=== PATIENT | female | born 1945 | race Caucasian/White ===

== ENCOUNTER → 2017-07-09 | Outpatient (CLI) | payer MEDICARE | END | disposition home or self-care (01) | LOC: CFH 14:27 | PROVIDERS: ATTEND Radiology Radiation Oncology | DX: Z12.31 Encounter for screening mammogram for malignant neoplasm of breast (principal); N64.89 Other specified disorders of breast; Z85.3 Personal history of malignant neoplasm of breast | CPT/HCPCS: G0202 ==

== ENCOUNTER → 2017-07-16 | Outpatient (CLI) | payer MEDICARE | END | disposition home or self-care (01) | LOC: CFH 13:53 | PROVIDERS: ATTEND Radiology Radiation Oncology | DX: N64.89 Other specified disorders of breast (principal) | CPT/HCPCS: 76641; G0206 ==

== ENCOUNTER → 2018-06-23 | Outpatient (CLI) | payer MEDICARE | END | disposition home or self-care (01) | LOC: ROC 10:43 | PROVIDERS: ATTEND Radiology Radiation Oncology | DX: C50.112 Malignant neoplasm of central portion of left female breast (principal) | CPT/HCPCS: G0463 ==

== ENCOUNTER → 2020-07-12 | Outpatient (CLI) | payer MEDICARE ==
[~2020-07-12] MED LIST: ACET325T14 PO; BIOT5TAB PO; CYAN50008 PO; HYDR200T72 PO; METO-93 PO; MULT-449 PO; Melatonin PO; OMEG1CAP23 PO; SOLI10TA2 PO; Vitamin D3 PO; calcium PO; lipitor PO; naproxen PO; turmeric PO
[2020-07-12 12:31] LABS: ANION GAP 5 mmol/L (5-15); CALCIUM 9.5 mg/dL (8.5-10.1); CHLORIDE 108 mmol/L (98-107)
[2020-07-12 12:34] LABS: CREATININE 0.88 mg/dL (0.55-1.02)
[2020-07-12 12:55] LABS: BASOPHILS % (AUTO) 1 % (0-1); EOSINOPHILS % (AUTO) 2 % (1-7); LYMPHOCYTES % (AUTO) 15 % (22-44); MEAN CORPUSCULAR HEMOGLOBIN 32.8 pg (27.0-34.8); MEAN CORPUSCULAR HGB CONC 33.2 g/dL (32.4-35.8); MEAN PLATELET VOLUME 8.2 fL (7.4-10.4); MONOCYTES % (AUTO) 9 % (2-9); NEUTROPHILS % (AUTO) 73 % (42-75); PLATELET COUNT 202 x10^3/uL (130-400); RED CELL DISTRIBUTION WIDTH 12.8 % (9.6-15.2)
[2020-07-12 12:59] LABS: MD NO
== END | disposition home or self-care (01) ==
LOC: STAR 10:57
PROVIDERS: ATTEND Orthopaedic Surgery
DX: Z01.812 Encounter for preprocedural laboratory examination (principal); Z20.828 Contact with and (suspected) exposure to other viral communicable diseases; M17.12 Unilateral primary osteoarthritis, left knee
CPT/HCPCS: 36415; 80048; 85025; 87081; 87147; 87635; 93005

== ENCOUNTER 2020-07-16 06:44 | Observation (INO) | payer MEDICARE ==
[~2020-07-16] VITALS: Ht 175.3 cm; Wt 93.0 kg
[2020-07-16] MEDS ORDERED: CHLORHEXIDINE 15 ML UDC MM STA (06:54)
[2020-07-16] MEDS ORDERED: LACTATED RINGERS 1,000 ML IV SCH (07:00)
[2020-07-16] MEDS ORDERED: TRANEXAMIC ACID 100 MG/ML, 10ML ONE ×2 (07:09)
[2020-07-16] MEDS ORDERED: KETOROLAC 60 MG/2 ML ONE (07:09)
[2020-07-16] MEDS ORDERED: EPINEPHRINE 1 MG/ML, 1ML ONE (07:10)
[2020-07-16] MEDS ORDERED: VANCOMYCIN 1,000 MG ONE (07:10)
[2020-07-16] MEDS ORDERED: ROPIvacaine/PF 0.2%, 20 ML ONE (07:10)
[2020-07-16] MEDS ORDERED: SODIUM CHLORIDE 0.9% 50 ML ONE (07:10)
[2020-07-16] MEDS ORDERED: ACETAMINOPHEN 500 MG TABLET PO ONE (07:30)
[2020-07-16] MEDS ORDERED: MEPERIDINE/PF 25MG/0.5ML IVPush PRN (08:00)
[2020-07-16] MEDS ORDERED: EPHEDRINE 50 MG/ML, 1ML IVPush PRN (08:00)
[2020-07-16] MEDS ORDERED: PROMETHAZINE 25 MG/ML, 1ML IVPush PRN (08:00)
[2020-07-16] MEDS ORDERED: hydrALAzine 20 MG/ML, 1ML IV PRN (08:00)
[2020-07-16] MEDS ORDERED: ONDANSETRON 2MG/ML, 2ML IVPush PRN ×2 (08:00→12:00)
[2020-07-16] MEDS ORDERED: HYDROmorphone 1 MG/ML, 1ML INJ IVPush PRN ×2 (08:00→12:00)
[2020-07-16] MEDS ORDERED: LABETALOL 5MG/ML, 20ML IV PRN (08:00)
[2020-07-16] MEDS ORDERED: FENTANYL PF 250 MCG/5ML ONE (08:11)
[2020-07-16] MEDS ORDERED: BUPIVACAINE/PF 0.5% ONE (08:12)
[2020-07-16] MEDS ORDERED: DEXAMETHASONE 4 MG/ML, 1ML ONE (10:15)
[2020-07-16] MEDS ORDERED: SUCCINYLCHOLINE 20 MG/ML, 10ML ONE (10:15)
[2020-07-16] MEDS ORDERED: CEFAZOLIN 1,000 MG ONE (10:15)
[2020-07-16] MEDS ORDERED: LIDOCAINE-MPF 2% ,5ML ONE (10:15)
[2020-07-16] MEDS ORDERED: ONDANSETRON 2MG/ML, 2ML ONE (10:15)
[2020-07-16] MEDS ORDERED: PROPOFOL 10 MG/ML, 20ML ONE (10:15)
[2020-07-16] MEDS ORDERED: FENTANYL PF 100 MCG/2ML ONE ×2 (11:05→11:49)
[2020-07-16] MEDS ORDERED: OXYcodone 5 MG/5 ML ORAL.SOL UDC ONE (11:49)
[2020-07-16] MEDS ORDERED: PROMETHAZINE 25 MG/ML, 1ML ONE (11:52)
[2020-07-16] MEDS: FENTANYL PF 100 MCG/2ML IV PRN ×3 (11:55→12:49)
[2020-07-16] MEDS ORDERED: OXYcodone IR 5MG TABLET PO PRN ×2 (12:00)
[2020-07-16] MEDS ORDERED: POLYETHYLENE GLYCOL 17 GM PACKET PO PRN (12:00)
[2020-07-16] MEDS ORDERED: BISACODYL 10 MG SUPP PR PRN (12:00)
[2020-07-16] MEDS ORDERED: ONDANSETRON 4 MG TABLET PO PRN (12:00)
[2020-07-16] MEDS ORDERED: SENNA/DOCUSATE TABLET PO PRN (12:00)
[2020-07-16] MEDS ORDERED: DIPHENHYDRAMINE 50 MG CAPSULE PO PRN (12:00)
[2020-07-16] MEDS ORDERED: KETOROLAC 30 MG/1 ML IV SCH (12:00)
[2020-07-16] MEDS ORDERED: ACETAMINOPHEN 500 MG TABLET PO SCH (12:00)
[2020-07-16] MEDS ORDERED: PROMETHAZINE 25 MG/ML, 1ML IM PRN (12:00)
[2020-07-16] MEDS ORDERED: PSYLLIUM PACKET PO PRN (12:00)
[2020-07-16] MEDS ORDERED: PROMETHAZINE 12.5 MG SUPP PR PRN (12:00)
[2020-07-16] MEDS ORDERED: DIAZEPAM 5 MG TABLET PO PRN (12:00)
[2020-07-16] MEDS ORDERED: ALUMINUM/MAG/SIMETHICONE 30 ML UDC PO PRN (12:00)
[2020-07-16] MEDS ORDERED: METHOCARBAMOL 1,000 MG in DEXTROSE 5% 100 ML IV ONE (12:00)
[2020-07-16] MEDS ORDERED: MAGNESIUM HYDROXIDE 8%, 30ML UDC PO PRN (12:00)
[2020-07-16] MEDS ORDERED: SODIUM CHLORIDE 0.9% 1,000 ML IV SCH (12:00)
[2020-07-16] MEDS ORDERED: DIPHENHYDRAMINE 50 MG/ML, 1ML IVPush PRN (12:00)
[2020-07-16] MEDS ORDERED: MEPERIDINE/PF 25MG/ML,1ML ONE (12:13)
[2020-07-16] MEDS: OXYcodone 5 MG/5 ML ORAL.SOL UDC PO PRN ×2 (12:40→13:00)
[2020-07-16] MEDS ORDERED: TRANEXAMIC ACID 1,000 MG in SODIUM CHLORIDE 0.9% 100 ML IVPB ONE (14:00)
[2020-07-16 14:20] VITALS: BP 118/68
[2020-07-16] MEDS ORDERED: CEFAZOLIN PMX 1GM/50ML 50 ML IVPB SCH (15:00)
[2020-07-16] MEDS ORDERED: TAMSULOSIN 0.4 MG CAP.ER.24H PO ONE (15:00)
[2020-07-16] MEDS ORDERED: DOCUSATE 100 MG CAPSULE PO SCH (21:00)
[2020-07-16] MEDS ORDERED: ASPIRIN 81 MG TABLET EC PO SCH (21:00)
[2020-07-16] MEDS ORDERED: METOPROLOL SUCCINATE 50 MG TAB.ER.24H PO SCH (21:00)
[2020-07-17] MEDS ORDERED: DEXAMETHASONE 4 MG/ML, 1ML IVPush SCH (06:00)
[2020-07-17] MEDS ORDERED: HYDROXYCHLOROQUINE 200 MG TABLET PO SCH (09:00)
[2020-07-17] MEDS ORDERED: TEMPLATE NON-FORMULARY MED. (VESICARE 10 MG) PO SCH (09:00)
== END 2020-07-16 18:57 | disposition home or self-care (01) ==
LOC: OUT 06:44 → ORIP 11:41 → 4NE 13:25
PROVIDERS: ADMIT Orthopaedic Surgery; ATTEND Orthopaedic Surgery
DX: M17.12 Unilateral primary osteoarthritis, left knee (principal); M06.862 Other specified rheumatoid arthritis, left knee; M06.861 Other specified rheumatoid arthritis, right knee; G47.33 Obstructive sleep apnea (adult) (pediatric); E78.5 Hyperlipidemia, unspecified; Z79.899 Other long term (current) drug therapy
CPT/HCPCS: 27447; 73560; 96365; 97161; C1713; C1776; G0378; J0171; J0330; J0690; J1100; J1885; J2175; J2405; J2550; J2704; J2795; J2800; J3010; J3490; J7120; S0020; J3370

== ENCOUNTER → 2020-08-01 | Outpatient (CLI) | payer MEDICARE | END | disposition home or self-care (01) | LOC: CFH 10:28 | PROVIDERS: ATTEND Internal Medicine | DX: Z12.31 Encounter for screening mammogram for malignant neoplasm of breast (principal) | CPT/HCPCS: 77063; 77067 ==